=== PATIENT | female | born 1970 | race American Indian/Alaskan Native ===

== ENCOUNTER 2018-09-13 07:31 | Day surgery (SDC) | payer OTHER ==
[~2018-09-13] VITALS: Ht 162.6 cm; Wt 100.2 kg
[~2018-09-13 07:31] MED LIST: AMBIEN; AMLO10 PO; Aldactone50 MG PO; BUPR150ER; BUPR150ER PO; BUPR150T2 PO; CHLORTHALIDONE PO; CHOL10002; CYAN100; GLIP5 PO; LAMO100 PO; Macrobid 100 M100 MG PO; NAPR550 PO; OXYACE5T PO; PRAV20 PO; Pyridium200 MG PO; QUET100 PO; QUET200 PO; RXNAPNA550 PO; VALS80 PO; Vitamin B Comple1 EA PO
--- NOTE | 2018-09-13 08:33 | NUR ---
Ambulatory in Day Surgery History, Chart, Medications and Allergies reviewed before start of procedure.Patient confirms NPO status and agrees with scheduled surgery. Patient reports completing Chlorhexadine shower X2 prior to admission to hospital.Surgical site prepped with 2% Chlorhexidine cloth wipe.
--- NOTE | 2018-09-13 10:53 | NUR ---
PT WITH UMBILICAL DRESSING D&I. PT GIVEN SIPS OF APPLE JUICE AND CRACKERS TO EAT.
--- NOTE | 2018-09-13 10:58 | NUR ---
PT HAS BEEN ABLE TO DRINK JUICE AND EAT SOME CRACKERS. PO MEDICATIONS PROVIDED FOR PAIN.
--- NOTE | 2018-09-13 11:40 | NUR ---
Discharge instructions reviewed with patient. Patient verbalizes understanding. Copy given to patient to take home. Patient States Post-Procedure ride home has been arranged.
== END 2018-09-13 11:40 | disposition home or self-care (01) ==
LOC: ORSCMMR 07:31 → ORD 10:00 → ORSCMMR 11:40
PROVIDERS: Surgery
PROC: 0WUF0JZ Supplement Abdominal Wall with Synthetic Substitute, Open Approach (ICD-10-PCS; principal; 2018-09-13 09:00)
DX: K42.0 Umbilical hernia with obstruction, without gangrene (principal); E11.22 Type 2 diabetes mellitus with diabetic chronic kidney disease; I12.9 Hypertensive chronic kidney disease with stage 1 through stage 4 chronic kidney disease, or unspecified chronic kidney disease; N18.3 Chronic kidney disease, stage 3 (moderate); E78.00 Pure hypercholesterolemia, unspecified; E66.01 Morbid (severe) obesity due to excess calories; Z68.38 Body mass index [BMI] 38.0-38.9, adult; Z79.899 Other long term (current) drug therapy
CPT/HCPCS: 82947; C1781; J0690; J1100; J1885; J2250; J2405; J3010; J7120

== ENCOUNTER → 2020-04-22 | Outpatient (CLI) | payer OTHER ==
[2020-04-23 06:49] LABS: Candida species (DNA Probe) Negative (NEGATIVE); G. vaginalis (DNA Probe) Negative (NEGATIVE); T. vaginalis (DNA Probe) Negative (NEGATIVE)
== END | disposition home or self-care (01) ==
LOC: LAB 16:24 → LAB SHORT 16:24
PROVIDERS: Nurse Practitioner Family
DX: N89.9 Noninflammatory disorder of vagina, unspecified (principal)
CPT/HCPCS: 87480; 87510; 87660